=== PATIENT | male | born 2000 | race Caucasian/White ===

== ENCOUNTER 2024-08-24 15:18 | Emergency (ER) | payer SELFPAY ==
[2024-08-24 15:38] VITALS: BP 128/88; PULSE 110; TEMP 37.3; O2SAT 100; BMI 30.6
--- NOTE | 2024-08-24 15:54 | ED.PSYCH1 ---
HPI - Psych General Chief Complaint: Psychiatric Symptoms Stated Complaint: MENTAL HEALTH Time Seen by Provider: 08/24/24 15:49 Source: Reports patient Mode of arrival: walk-in Limitations: Reports no limitations History of Present Illness HPI Narrative: Patient is a 23-year-old male who presents to the emergency department for increasing depression. Patient states his girlfriend broke up with him 1 week ago because of his mental health issues . He states that he is here in the emergency department to get help that he needs with anger management and his depression. He denies drug or alcohol ingestion. He has not had any medication overdoses or cutting. He denies any active suicidal ideation although he states for years he has had intermittent thoughts of suicide. He denies homicidal ideation or recent illness. No other focal medical complaints today. Related Data Home Medications ?Medication ?Instructions ?Recorded ?Confirmed No Known Home Medications 08/24/24 08/24/24 Allergies Allergy/AdvReac Type Severity Reaction Status Date / Time No Known Drug Allergies Allergy Verified 08/24/24 15:45 Review of Systems ROS Constitutional Denies: fever or chills Ears, nose, mouth, and throat Denies: throat pain or nasal congestion Respiratory Denies: shortness of breath Gastrointestinal Denies: nausea or vomiting Integumentary/Breast Denies: rash Neurological Denies: numbness in extremities or weakness in extremities Psychiatric Reports: suicidal ideation Hematologic/Lymphatic Denies: easy bruising or easy bleeding PFSH PFSH Social History Little interest or pleasure in doing things: several days Feeling down, depressed, or hopeless: several days Exam Narrative Exam Narrative: Gen.: Awake, alert, in no distress Head: Normocephalic, atraumatic ENT: Moist mucous membranes Respiratory: No respiratory distress Extremities: Moves extremities equally Psych: Flat affect with no current suicidal or homicidal ideation Neuro: No focal neuro deficit Skin: Warm, dry, intact Constitutional Vital Signs, click to edit/add: Last Vital Signs Temp 99.2 F 08/24/24 15:38 Pulse 110 H 08/24/24 15:38 Resp 20 08/24/24 15:38 BP 128/88 08/24/24 15:38 Pulse Ox 100 08/24/24 15:38 O2 Del Method Room Air 08/24/24 15:38 Course Vital Signs Vital signs: Vital Signs Temperature 99.2 F 08/24/24 15:38 Pulse Rate 110 H 08/24/24 15:38 Respiratory Rate 20 08/24/24 15:38 Blood Pressure 128/88 08/24/24 15:38 Pulse Oximetry 100 08/24/24 15:38 Oxygen Delivery Method Room Air 08/24/24 15:38 Temperature 99.2 F 08/24/24 15:38 Pulse Rate 110 H 08/24/24 15:38 Respiratory Rate 20 08/24/24 15:38 Blood Pressure 128/88 08/24/24 15:38 Pulse Oximetry 100 08/24/24 15:38 Oxygen Delivery Method Room Air 08/24/24 15:38 MDM - Psych MDM Narrative Medical decision making narrative: Patient is medically cleared for psychiatric evaluation. He spoke with counseling services on arrival and they felt he needed an in person therapist evaluation. COVID test, EKG, labs and urine were obtained. Urine specimen is contaminated with 5-10 WBCs so we will wait for culture before treatment as the patient has no urinary symptoms. Patient was evaluated by mental health counseling services, he does not require an admission or transfer at this time. He is discharged home with counseling follow-up as an outpatient. Return to the ER if symptoms change or worsen. SUPERVISED APC VISIT, PHYSICIAN ATTESTATION: Based on the medical record the care appears appropriate. ? Medical Records Attestation: I reviewed the patient's medical records. Lab Data Attestation: I reviewed the patient's lab results. Labs: Lab Results 08/24/24 08/24/24 08/24/24 Range/Units 16:30 16:34 16:55 WBC 6.3 (4.0-11.0) 10^3/uL RBC 5.44 (4.70-6.10) 10^6/uL Hgb 16.0 (14.0-18.0) g/dL Hct 44.7 (42.0-54.0) % MCV 82.2 (80.0-94.0) fL MCH 29.4 (25.9-34.0) pg MCHC 35.8 H (29.9-35.2) g/dL RDW 12.1 (11.0-15.0) % Plt Count 277 (150-450) 10^3/uL MPV 9.1 L (9.5-13.5) fL Neut % (Auto) 55.2 (43.0-75.0) % Lymph % (Auto) 31.4 (20.5-60.0) % [place] % (Auto) 8.6 (1.7-12.0) % Eos % (Auto) 3.5 (0.9-7.0) % Baso % (Auto) 0.8 (0.2-2.0) % Neut # (Auto) 3.5 (1.4-6.5) 10^3/uL Lymph # (Auto) 2.0 (1.2-3.8) 10^3/uL Potter # (Auto) 0.5 (0.3-0.8) 10^3/uL Eos # (Auto) 0.2 (0.0-0.7) 10^3/uL Baso # (Auto) 0.1 (0.0-0.1) 10^3/uL Abs Immat Gran (auto) 0.03 (0.00-0.03) 10^3/uL Imm/Tot Granulo (auto) 0.5 (0.0-0.5) % Sodium 139 (136-145) mmol/L Potassium 4.1 (3.5-5.1) mmol/L Chloride 101 (98-107) mmol/L Carbon Dioxide 29.5 (21.0-32.0) mmol/L Anion Gap 12.6 BUN 17.0 (7.0-18.0) mg/dL Creatinine 1.15 (0.70-1.30) mg/dL Est GFR ( Amer) >60 (>=60 mL/min/1.73m^2) Est GFR (Non-Af Amer) >60 (>=60 mL/min/1.73m^2) BUN/Creatinine Ratio 14.8 Glucose 103 (74-106) mg/dL Calcium 9.4 (8.5-10.1) mg/dL Total Bilirubin 0.8 (0.2-1.0) mg/dL AST 22 (15-37) U/L ALT 73 H (16-63) U/L Alkaline Phosphatase 62 (46-116) U/L Total Protein 8.0 (6.4-8.2) g/dL Albumin 4.6 (3.4-5.0) g/dL Globulin 3.4 g/dL Albumin/Globulin Ratio 1.4 Urine Color Brown A (YELLOW) Urine Clarity Sl cloudy (CLEAR) Urine pH 6.0 (5.0-9.0) Ur Specific [place] >=1.030 A (1.005-1.025) Urine Protein Negative (NEG/TRACE) mg/dL Urine Glucose (UA) Negative (NEGATIVE) mg/dL Urine Ketones Negative (NEGATIVE) mg/dL Urine Occult Blood Negative (NEGATIVE) Urine Nitrite Negative (NEGATIVE) Urine Bilirubin Negative (NEGATIVE) Urine Urobilinogen 1.0 (0.2-1.0) EU/dL Ur Leukocyte Esterase Negative (NEGATIVE) Urine RBC 0-2 (0-2) #/HPF Urine WBC 5-10 A (NONE SEEN) #/HPF Ur Squamous Epith Cells Many A (NONE/RARE) #/LPF Ur Transition Epith Cell Rare A (NONE SEEN) #/LPF Urine Crystals None seen (None Seen) #/HPF Urine Bacteria Moderate A (NONE SEEN) #/HPF Urine Casts None seen (NONE SEEN) #/LPF Urine Mucus Large A (NONE SEEN) Ur Culture Indicated? Yes Salicylates <2.8 (<=19.9) mg/dL Urine Opiates Screen Negative (NEGATIVE) Ur Buprenorphine Scrn Negative (NEGATIVE) Ur Oxycodone Screen Negative (NEGATIVE) Urine Methadone Screen Negative (NEGATIVE) Acetaminophen <2.0 L (10.0-30.0) ug/mL Ur Barbiturates Screen Negative (NEGATIVE) U Tricyclic Antidepress Negative (NEGATIVE) Ur Phencyclidine Scrn Negative (NEGATIVE) Ur Amphetamines Screen Negative (NEGATIVE) U Methamphetamines Scrn Negative (NEGATIVE) U Benzodiazepines Scrn Negative (NEGATIVE) Urine Cocaine Screen Negative (NEGATIVE) U Cannabinoids Screen Negative (NEGATIVE) Ethanol Quant <3 mg/dL SARS-CoV-2 Ag (CV2AG) Negative (NEGATIVE) ECG Data Attestation: I personally reviewed and interpreted this ECG as follows: (Normal sinus rhythm at a rate of 92 with sinus arrhythmia, nonspecific ST elevation with no reciprocal changes. EKG reviewed by attending physician) Discharge Plan Discharge Chief Complaint: Psychiatric Symptoms Clinical Impression: Depression Patient Disposition: Home, Self-Care Time of Disposition Decision: 18:16 Condition: Good Prescriptions / Home Meds: No Action No Known Home Medications Print Language: Irish Instructions: Depression (ED) Additional Instructions: [facility] sukhdev will contact you on Monday for an appointment Referrals: Physician,Non-Staff, MD [Primary Care Provider] - 1 week Discharge Date/Time: 08/24/24 18:21
--- NOTE | 2024-08-24 16:26 | ECG_ITS ---
[facility] Test Date: 2024-08-24 Pat Name: CAMILA LEE Department: Room: - Gender: Male [employer] Operator: : [id number] Requested By: Order Number: [id number] Reading MD: RAFIA STEWART Measurements Intervals [place] Rate: 92 P: 43 NE: 140 QRS: 74 QRSD: 80 T: 54 QT: 342 QTc: 391 Interpretive Statements 1100 Sinus rhythm 1102 Sinus arrhythmia [address] elevation 9130 borderline ECG No previous ECG available for comparison Electronically Signed On 08-25-2024 8:13:37 EST by RAFIA STEWART
[2024-08-24 16:42] LABS: Basophils Absolute Auto 0.1 10^3/uL (0.0-0.1); Basophils Percent Auto 0.8 % (0.2-2.0); Eosinophils Absolute Auto 0.2 10^3/uL (0.0-0.7); Eosinophils Percent Auto 3.5 % (0.9-7.0); Hematocrit 44.7 % (42.0-54.0); Immature Granulocytes Abs Auto 0.03 10^3/uL (0.00-0.03); Immature Granulocytes Pct Auto 0.5 % (0.0-0.5); Lymphocytes Percent Auto 31.4 % (20.5-60.0); Mean Corpuscular HGB Conc 35.8 g/dL (29.9-35.2); Mean Corpuscular Hemoglobin 29.4 pg (25.9-34.0); Mean Corpuscular Volume 82.2 fL (80.0-94.0); Mean Platelet Volume 9.1 fL (9.5-13.5); Monocytes Absolute Auto 0.5 10^3/uL (0.3-0.8); Monocytes Percent Auto 8.6 % (1.7-12.0); Neutrophils Absolute Auto 3.5 10^3/uL (1.4-6.5); Neutrophils Percent Auto 55.2 % (43.0-75.0); Platelet Count 277 10^3/uL (150-450); Red Blood Count 5.44 10^6/uL (4.70-6.10); Red Cell Distribution Width 12.1 % (11.0-15.0); White Blood Count 6.3 10^3/uL (4.0-11.0)
[2024-08-24 17:03] LABS: Alanine Aminotransferase 73 U/L (16-63); Albumin Globulin Ratio 1.4; Albumin Level 4.6 g/dL (3.4-5.0); Alkaline Phosphatase 62 U/L (46-116); Anion Gap 12.6; Aspartate Amino Transferase 22 U/L (15-37); BUN Creatinine Ratio 14.8; Bilirubin Total 0.8 mg/dL (0.2-1.0); Calcium 9.4 mg/dL (8.5-10.1); Carbon Dioxide 29.5 mmol/L (21.0-32.0); Chloride 101 mmol/L (98-107); Estimated GFR (African America >60 (>=60 mL/min/1.73m^2); Estimated GFR (Non-African Ame >60 (>=60 mL/min/1.73m^2); Globulin 3.4 g/dL; Glucose 103 mg/dL (74-106); Potassium 4.1 mmol/L (3.5-5.1); Salicylate <2.8 mg/dL (<=19.9); Sodium 139 mmol/L (136-145)
[2024-08-24 17:05] LABS: Internal Control Within Normal Limits; SARS-CoV-2 Ag NEGATIVE (NEGATIVE)
[2024-08-24 17:06] LABS: Acetaminophen <2.0 ug/mL (10.0-30.0); Ethanol <3 mg/dL
[2024-08-24 17:20] LABS: Bilirubin Urine NEGATIVE (NEGATIVE); Blood Urine NEGATIVE (NEGATIVE); Clarity Urine SL CLOUDY (CLEAR); Color Urine BROWN (YELLOW); Glucose Urine UA NEGATIVE (NEGATIVE); Ketones Urine NEGATIVE (NEGATIVE); Leukocyte Esterase Urine NEGATIVE (NEGATIVE); Nitrite Urine NEGATIVE (NEGATIVE); Protein Urine NEGATIVE (NEG/TRACE); Specific Gravity Urine >=1.030 (1.005-1.025)
[2024-08-24 17:30] LABS: Bacteria Urine MODERATE #/HPF (NONE SEEN); Mucus Urine LARGE (NONE SEEN); RBC Urine 0-2 #/HPF (0-2)
[2024-08-24 17:31] LABS: Cast Seen? NONE SEEN #/LPF (NONE SEEN); Crystals Seen? None Seen #/HPF (None Seen); Squamous Epithelial Cell Urine MANY #/LPF (NONE/RARE); Transitional Epi Cells Urine RARE #/LPF (NONE SEEN); Urine Culture Indicated YES
[2024-08-24 17:32] LABS: Amphetamine Screen Urine NEGATIVE (NEGATIVE); Barbiturates Screen Urine NEGATIVE (NEGATIVE); Benzodiazepines Screen Urine NEGATIVE (NEGATIVE); Buprenorphine Screen Urine NEGATIVE (NEGATIVE); Cannabinoid Screen Urine NEGATIVE (NEGATIVE); Cocaine Screen Urine NEGATIVE (NEGATIVE); Methadone Screen Urine NEGATIVE (NEGATIVE); Methamphetamines Screen Urine NEGATIVE (NEGATIVE); Opiate Screen Urine NEGATIVE (NEGATIVE); Oxycodone Screen Urine NEGATIVE (NEGATIVE); Phencyclidine Screen Urine NEGATIVE (NEGATIVE); Tricyclic Antidepressant Urine NEGATIVE (NEGATIVE)
--- NOTE | 2024-08-24 17:40 | PC.NURSE ---
Estefany from [facility] counseling speaking in person with patient at this time.
== END 2024-08-24 18:21 | disposition home or self-care (01) ==
PROVIDERS: Physician Assistant; Emergency Provider Emergency Medicine
DX: F32.A Depression, unspecified (principal)
CPT/HCPCS: 36415; 80053; 80179; 80307; 80320; 80329; 81001; 85025; 87086; 87811; 93005; 99285